=== PATIENT | male | born 1955 | race Caucasian/White ===

== ENCOUNTER 2018-06-29 11:08 | Inpatient (IN) | payer OTHER ==
[2018-06-29] MEDS ORDERED: ONDANSETRON 4 MG/2 ML VIAL ONE (12:30)
[2018-06-29] MEDS ORDERED: MORPHINE 4 MG/ML SYR ONE (12:30)
[2018-06-29] MEDS ORDERED: Levofloxacin500mg IV 500 MG/100 ML BAG IV ONE (12:31)
[2018-06-29] MEDS ORDERED: CEFTRIAXONE/SWI 1gm 1 GM/10 ML SYR ONE (12:31)
[2018-06-29] MEDS ORDERED: NA CHLORIDE 0.9% 1,000 ML ONE (12:31)
--- NOTE | 2018-06-29 12:53 | RAD REPORT ---
EXAM DESCRIPTION: CT - Stone Protocol - 06/29/2018 12:30 pm CLINICAL HISTORY: Abdominal pain, flank pain, testicular pain, history of bladder cancer COMPARISON: CT imaging November 2016 in October 2012 TECHNIQUE: Axial 5 mm thick images were obtained without oral or IV contrast. The [id number] span s the entirety of the system including uppermost abdomen and lung bases. All CT scans are performed using dose optimization technique as appropriate and may include automated exposure control or mA/KV adjustment according to patient size. FINDINGS: Bilateral nephrocalcinosis is present. Patient has punctate caliceal calculi mid and upper pole of the right kidney is well is a 7 x 3 mm calcification in a calyx lower pole left kidney. Calc ifications are more numerous than November 2016. On the left there is punctate mid and lower pole calice al calculi. No suspicious renal masses. Isodense masses and pyelonephritis are not excluded on a ston e protocol CT scan. No urinary bladder suspicious finding. No bladder calculus. Prostate gland and se salvador vesicles are normal range in unchanged. Imaged portions of the liver, spleen and pancreas show no suspicious findings on non-contrast imaging . No gallbladder or biliary tree abnormality identified. Gallstones can be occult on CT imaging. An a cute gallbladder process is not suspected. No suspicious bowel findings. No acute appendicitis findings. Trace amount of free fluid is present i n the cul-de-sac. No free air or pneumatosis. Patient has a small fat only umbilical hernia. Moderate-sized bilateral inguinal hernias are present. On the right this contains only fat. Short-segment of proximal sigmoid colon extends into the left h ernia defect. No bowel wall thickening or edema. No congested or edematous fat. Disc and bony degenerative changes are present. Two sclerotic foci air seen in the superior right jackson ac crest measuring 7 mm laterally and 9 mm medially. Comparing back to prior imaging shows interval e nlargement. In the left ilium adjacent to the SI joint there are 2 lucent lesions seen. The more supe rior lesion shows no sclerotic rim. The more inferior lesion has a dense sclerotic rim. These are not clearly different from prior imaging studies. . IMPRESSION: Moderate-sized bilateral inguinal hernias are present. Hernia on the left contains a mat rt segment of the proximal sigmoid colon. No wall thickening or edema. No new findings in the right s ajay hernia. Trace amount of free fluid in the dependent portion of the pelvis. No acute GI process identifiable. Nephrolithiasis and nonobstructing caliceal calcifications of each kidney. No hydronephrosis or obstr ucting calculus. Isodense masses and pyelonephritis are not excluded on stone protocol technique. Sclerotic foci in the superior right iliac crest have enlarged compared to prior imaging studies. In a patient with a history of bladder cancer, metastatic disease is suspected.
--- NOTE | 2018-06-29 12:58 | RAD REPORT ---
EXAM DESCRIPTION: RAD - Chest Single View - 06/29/2018 12:41 pm CLINICAL HISTORY: ABDOMINAL DISTENTION Chest pain. COMPARISON: Abdomen 1 View (KUB) dated 10/01/2016; ABDOMEN 1 VIEW KUB dated 10/01/2012; CHEST PA AND L AT 2 VIEW dated 01/23/2012; CHEST SINGLE VIEW dated 09/29/2011 FINDINGS: Portable technique limits examination quality. Prominent emphysematous changes are present throughout the lungs. The heart is normal in size. No dis placed fractures.Sternotomy wires present. IMPRESSION: Advanced COPD.
--- NOTE | 2018-06-29 13:03 | RAD REPORT ---
EXAM DESCRIPTION: US - Scrotum Testicles - 06/29/2018 12:52 pm CLINICAL HISTORY: Abdominal pain, testicular pain COMPARISON: CT stone protocol study same date FINDINGS: Testicular tissue is homogeneous. No intratesticular mass lesion. Right testicle is 4.6 x 2.1 x 3.4 cm. Left testicle is 4.8 x 2.1 x 2.9 cm. Doppler evaluation shows a symmetric intratesticul ar blood flow pattern. No varicocele or hydrocele seen. No suspicious epididymis finding. Earlier CT study demonstrated moderate-sized fat filled inguinal hernias. On the right side the herni ated fatty tissue extends through the groin to the superior margin of the right testicle. On the left the herniated fat is not as pronounced. CT showed herniation of sigmoid colon only into the origin o f the left inguinal canal. IMPRESSION: No testicular significant finding. Bilateral fat filled inguinal hernias are present. Fatty tissue is more pronounced on the right were it extends inferiorly to the level of the right testicle. The herniated bowel seen on the CT study left-side extends only into the proximal most inguinal canal .
--- NOTE | 2018-06-29 13:19 | ER ---
Nurse's Notes [facility] Name: Abdulaziz Houston Age: 63 yrs Sex: Male : 1955 Arrival Date: 06/29/2018 Time: 11:10 Bed 19 Private MD: Marjorie Mcelroy Diagnosis: Bilateral inguinal hernia, with obstruction, without gangrene;[id number];Chronic obstructive pulmonary disease, unspecified;Cystitis;Cystitis, unspecified Presentation: 06/29 11:16 Presenting complaint: Patient states: Groin and testicular pain that began yesterday, ph also c/o slight swelling to amadeo testicles, denies fever, N/V/D, also reports excessive belching. Transition of care: patient was not received from another setting of care. Onset of symptoms was June 29, 2018. Risk Assessment: Do you want to hurt yourself or someone else? Patient reports no desire to harm self or others. Care prior to arrival: None. 11:16 Method Of Arrival: Wheelchair ph 11:16 Acuity: YAHAIRA 3 ph 15:39 Initial Sepsis Screen: Does the patient meet any 2 criteria? No. Patient's initial sepsis screen is negative. Does the patient have a suspected source of infection? Yes:. Historical: - Allergies: 11:27 yellow fever vaccine live (PF); ph - Home Meds: 11:27 ipratropium-albuterol 0.5 mg-3 mg(2.5 mg base)/3 mL Inhl nebu 3 mL 4 times per day ph [Active]; albuterol sulfate 2.5 mg /3 mL (0.083 %) Nebulizer nebu twice a day [Active]; ipratropium bromide 0.02 % inhalation soln 2.5 mL twice a day [Active]; Spiriva with HandiHaler 18 mcg inhalation CpDv 1 cap once daily [Active]; Symbicort 160-4.5 mcg/actuation inhalation HFAA 1 puffs twice a day [Active]; tamsulosin 0.4 mg oral cp24 1 cap once daily [Active]; finasteride 5 mg oral tab 1 tab once daily [Active]; omeprazole 20 mg Oral cpDR 2 caps once daily [Active]; ranitidine HCl 150 mg Oral cap 1 cap 2 times per day [Active]; fluticasone 50 mcg/actuation nasal spsn 1 spray 2 times per day [Active]; - PMHx: 11:20 bladder cancer; COPD; mitral valve problems; prostate problems; ph - PSHx: 11:20 mitral valve sx; ph 11:23 bladder sx; ph - Immunization history:: Adult Immunizations up to date. - Social history:: Smoking status: Patient/guardian denies using tobacco. - Ebola Screening: : No symptoms or risks identified at this time. - Family history:: not pertinent. Screenin:45 Abuse screen: Denies threats or abuse. Denies injuries from another. Nutritional ch screening: No deficits noted. Tuberculosis screening: No symptoms or risk factors identified. Fall Risk None identified. Assessment: 13:10 General: Appears in no apparent distress. uncomfortable, Behavior is calm, cooperative, ch appropriate for age. Pain: Complains of pain in pelvis and groin and right testicle Pain currently is 9 out of 10 on a pain scale. Pain began gradually. 13:10 Neuro: No deficits noted. Level of Consciousness is awake, alert, obeys commands, ch Oriented to person, place, time, situation. Cardiovascular: Heart tones S1 S2 present Capillary refill < 3 seconds in bilateral fingers toes. Respiratory: Airway is patent Respiratory effort is even, unlabored, Breath sounds with wheezes bilaterally. mild, pt states that is his normal. denies SOB. GI: No signs and/or symptoms were reported involving the gastrointestinal system. : Swelling noted on scrotum testicles are both bright red, and very tender to palpation Reports pain scrotum, testicle. Derm: Skin is pink, warm \T\ dry. Musculoskeletal: Capillary refill < 3 seconds, in bilateral fingers. toes. Range of motion: intact in all extremities. 14:10 Reassessment: Patient appears in no apparent distress at this time. Patient and/or ch family updated on plan of care and expected duration. Pain level reassessed. Patient is alert, oriented x 3, equal unlabored respirations, skin warm/dry/pink. 15:09 Reassessment: Patient appears in no apparent distress at this time. Patient and/or ch family updated on plan of care and expected duration. Pain level reassessed. Patient is alert, oriented x 3, equal unlabored respirations, skin warm/dry/pink. Patient states feeling better. Patient states symptoms have improved. 15:39 Reassessment: Patient appears in no apparent distress at this time. I attempt to call ch report now on the pt. no s/s of distress. resps even and unlabored. 15:52 Reassessment: Patient appears in no apparent distress at this time. Patient and/or ch family updated on plan of care and expected duration. Pain level reassessed. Patient is alert, oriented x 3, equal unlabored respirations, skin warm/dry/pink. report given to Steve RIZZO on second floor. Vital Signs: 11:20 BP 115 / 54; Pulse 98; Resp 18; Temp 98.3; Pulse Ox 100% on R/A; Weight 63.5 kg; Height ph 5 ft. 10 in. (177.80 cm); Pain 6/10; 13:45 BP 110 / 62; Pulse 84; Resp 17; Temp 98.5; Pulse Ox 99% on R/A; Pain 6/10; ch 15:09 BP 103 / 58; Pulse 81; Resp 16; Temp 97.9; Pulse Ox 99% on R/A; Pain 2/10; ch 11:20 Body Mass Index 20.09 (63.50 kg, 177.80 cm) ph ED Course: 11:10 Patient arrived in ED. as 11:11 Marjorie Mcelroy MD is Private Physician. as 11:18 Triage completed. ph 11:20 Arm band placed on. ph 11:55 Annmarie Nascimento, SO is Primary Nurse. ch 11:57 Isma Peterson MD is Attending Physician. felisha 12:19 EKG done, by parking technician. reviewed by Isma Peterson MD. at1 12:[address] nj 12:29 CT Stone Protocol In Process Unspecified. EDMS 12:29 CT completed. Patient tolerated procedure well. Patient moved to radiology Patient nj moved back from CT. 12:39 X-ray completed. Patient tolerated procedure well. az 12:42 XRAY Chest (1 view) In Process Unspecified. EDMS 12:53 US Scrotum Testicles In Process Unspecified. EDMS 13:18 Margi Mobley MD is Hospitalizing Provider. felisha 13:45 Patient has correct armband on for positive identification. Placed in gown. Bed in low ch position. Call light in reach. Side rails up X 1. Adult w/ patient. desk monitor on. Pulse ox on. NIBP on. Warm blanket given. 13:45 No provider procedures requiring assistance completed. Inserted saline lock: 20 gauge in right forearm, using aseptic technique. Blood collected. 16:52 Patient admitted, IV remains in place. ch Administered Medications: 13:15 Drug: LevaQUIN 500 mg Volume: 100 ml; Route: IVPB; Infused Over: 60 mins; Site: right ch forearm; 15:06 Follow up: IV Status: Completed infusion; IV Intake: 100ml ch 13:16 Drug: morphine 4 mg Route: IVP; Site: right forearm; ch 13:50 Follow up: Response: No adverse reaction; No change in condition ch 13:16 Drug: Zofran 4 mg Route: IVP; Site: right forearm; ch 13:49 Follow up: Response: No adverse reaction; Marked relief of symptoms ch 13:16 Drug: Rocephin - (cefTRIAXone) 1 grams Route: IVPB; Infused Over: 30 mins; Site: right ch forearm; 13:49 Follow up: IV Status: Completed infusion; IV Intake: 50ml ch 13:17 Drug: NS 0.9% 1000 ml Route: IV; Rate: 1 bolus; Site: right forearm; ch 15:06 Follow up: IV Status: Completed infusion; IV Intake: 1000ml ch 13:20 Drug: Demerol 25 mg Route: IVP; Site: right forearm; ch 14:45 Follow up: Response: No adverse reaction; Marked relief of symptoms ch 14:00 Drug: Flagyl 500 mg Volume: 100 ml; Route: IVPB; Rate: 200 ml/hr; Infused Over: 30 ch mins; Site: right forearm; 15:05 Follow up: IV Status: Completed infusion; IV Intake: 100ml ch Intake: 13:49 IV: 50ml; Total: 50ml. ch 15:05 IV: 100ml; Total: 150ml. ch 15:06 IV: 100ml; Total: 250ml. ch 15:06 IV: 1000ml; Total: 1250ml. Outcome: 13:19 Decision to Hospitalize by Provider. [facility] 16:00 Admitted to Med/surg accompanied by nurse, via wheelchair, room 223, with chart. 16:00 Condition: stable 16:00 Instructed on the need for admit. 16:19 Patient left the ED. Signatures: Dispatcher [employer] Annmarie Flower RN RN Isma Peterson MD MD cha Martinez, Amelia as Gonzales, Amanda, oceanography teacher EKG Tat1 Tressa Bragg RN RN Tee, Serene Griggs Corrections: (The following items were deleted from the chart) 11:28 11:20 Allergies: No Known Allergies; [facility]
--- NOTE | 2018-06-29 13:19 | EDPHYS ---
Physician Documentation [facility] Name: Abdulaziz Houston Age: 63 yrs Sex: Male : 1955 Arrival Date: 06/29/2018 Time: 11:10 Bed 19 Private MD: Marjorie Mcelroy ED Physician Isma Peterson HPI: 06/29 12:05 This 63 yrs old Male presents to ER via Wheelchair with complaints of Groin felisha Pain. 12:05 The patient presents with abdominal pain. Onset: The symptoms/episode began/occurred 1 felisha day(s) ago. The patient presents with swelling, tenderness, that is mild, that is moderate, of the right testicle. Onset: The symptoms/episode began/occurred 2 day(s) ago. Modifying factors: The symptoms are alleviated by remaining still, the symptoms are aggravated by movement, pressure. Associated signs and symptoms: The patient has no apparent associated signs or symptoms. The symptoms do not radiate. Associated signs and symptoms: none. Severity of pain: At its worst the pain was mild in the emergency department the pain is unchanged. Historical: - Allergies: 11:27 yellow fever vaccine live (PF); ph - Home Meds: 11:27 ipratropium-albuterol 0.5 mg-3 mg(2.5 mg base)/3 mL Inhl nebu 3 mL 4 times per day ph [Active]; albuterol sulfate 2.5 mg /3 mL (0.083 %) Nebulizer nebu twice a day [Active]; ipratropium bromide 0.02 % inhalation soln 2.5 mL twice a day [Active]; Spiriva with HandiHaler 18 mcg inhalation CpDv 1 cap once daily [Active]; Symbicort 160-4.5 mcg/actuation inhalation HFAA 1 puffs twice a day [Active]; tamsulosin 0.4 mg oral cp24 1 cap once daily [Active]; finasteride 5 mg oral tab 1 tab once daily [Active]; omeprazole 20 mg Oral cpDR 2 caps once daily [Active]; ranitidine HCl 150 mg Oral cap 1 cap 2 times per day [Active]; fluticasone 50 mcg/actuation nasal spsn 1 spray 2 times per day [Active]; - PMHx: 11:20 bladder cancer; COPD; mitral valve problems; prostate problems; ph - PSHx: 11:20 mitral valve sx; ph 11:23 bladder sx; ph - Immunization history:: Adult Immunizations up to date. - Social history:: Smoking status: Patient/guardian denies using tobacco. - Ebola Screening: : No symptoms or risks identified at this time. - Family history:: not pertinent. ROS: 12:05 Constitutional: Negative for fever, chills, and weight loss, Eyes: Negative for injury, felisha pain, redness, and discharge, ENT: Negative for injury, pain, and discharge, Neck: Negative for injury, pain, and swelling, Cardiovascular: Negative for chest pain, palpitations, and edema, Respiratory: Negative for shortness of breath, cough, wheezing, and pleuritic chest pain, Abdomen/GI: Negative for abdominal pain, nausea, vomiting, diarrhea, and constipation, Back: Negative for injury and pain, MS/Extremity: Negative for injury and deformity, Skin: Negative for injury, rash, and discoloration, Neuro: Negative for headache, weakness, numbness, tingling, and seizure, Psych: Negative for depression, anxiety, suicide ideation, homicidal ideation, and hallucinations, Allergy/Immunology: Negative for hives, rash, and allergies, Endocrine: Negative for neck swelling, polydipsia, polyuria, polyphagia, and marked weight changes, Hematologic/Lymphatic: Negative for swollen nodes, abnormal bleeding, and unusual bruising. 12:05 : Positive for urinary symptoms, testicular pain of the right testicle. Exam: 12:05 Constitutional: This is a well developed, well nourished patient who is awake, alert, felisha and in no acute distress. Head/Face: Normocephalic, atraumatic. Eyes: Pupils equal round and reactive to light, extra-ocular motions intact. Lids and lashes normal. Conjunctiva and sclera are non-icteric and not injected. Cornea within normal limits. Periorbital areas with no swelling, redness, or edema. ENT: Nares patent. No nasal discharge, no septal abnormalities noted. Tympanic membranes are normal and external auditory canals are clear. Oropharynx with no redness, swelling, or masses, exudates, or evidence of obstruction, uvula midline. Mucous membranes moist. Neck: Trachea midline, no thyromegaly or masses palpated, and no cervical lymphadenopathy. Supple, full range of motion without nuchal rigidity, or vertebral point tenderness. No Meningismus. Chest/axilla: Normal chest wall appearance and motion. Nontender with no deformity. No lesions are appreciated. Cardiovascular: Regular rate and rhythm with a normal S1 and S2. No gallops, murmurs, or rubs. Normal PMI, no JVD. No pulse deficits. Respiratory: Lungs have equal breath sounds bilaterally, clear to auscultation and percussion. No rales, rhonchi or wheezes noted. No increased work of breathing, no retractions or nasal flaring. Back: No spinal tenderness. No costovertebral tenderness. Full range of motion. Skin: Warm, dry with normal turgor. Normal color with no rashes, no lesions, and no evidence of cellulitis. MS/ Extremity: Pulses equal, no cyanosis. Neurovascular intact. Full, normal range of motion. Neuro: Awake and alert, GCS 15, oriented to person, place, time, and situation. Cranial nerves II-XII grossly intact. Motor strength 5/5 in all extremities. Sensory grossly intact. Cerebellar exam normal. Normal gait. Psych: Awake, alert, with orientation to person, place and time. Behavior, mood, and affect are within normal limits. 12:05 Abdomen/GI: Inspection: abdomen appears normal, Bowel sounds: normal, Palpation: abdomen is soft and non-tender, Liver: no appreciated palpable abnormalities, Hernia: not appreciated. 12:05 : CVA tenderness, is absent, Male external genitalia: swelling, tenderness, of the right testicle is noted. Vital Signs: 11:20 BP 115 / 54; Pulse 98; Resp 18; Temp 98.3; Pulse Ox 100% on R/A; Weight 63.5 kg; Height ph 5 ft. 10 in. (177.80 cm); Pain 6/10; 13:45 BP 110 / 62; Pulse 84; Resp 17; Temp 98.5; Pulse Ox 99% on R/A; Pain 6/10; ch 15:09 BP 103 / 58; Pulse 81; Resp 16; Temp 97.9; Pulse Ox 99% on R/A; Pain 2/10; ch 11:20 Body Mass Index 20.09 (63.50 kg, 177.80 cm) ph MDM: 11:57 Patient medically screened. [facility] 12:09 Data reviewed: vital signs, nurses notes, lab test result(s), EKG, radiologic studies, [facility] CT scan, plain films, ultrasound. 06/29 12:04 Order name: Basic Metabolic Panel [facility] 06/29 12:04 Order name: CBC with Diff [facility] 06/29 12:04 Order name: LFT's [facility] 06/29 12:04 Order name: Magnesium [facility] 06/29 12:04 Order name: NT PRO-BNP [facility] 06/29 12:04 Order name: PT-INR [facility] 06/29 12:04 Order name: Troponin (emerg Dept Use Only) [facility] 06/29 12:04 Order name: Urine Culture [facility] 06/29 12:04 Order name: Lipase [facility] 06/29 12:05 Order name: Basic Metabolic Panel [facility] 06/29 12:05 Order name: Liver (Hepatic) Function [facility] 06/29 12:05 Order name: NT PRO-BNP [facility] 06/29 13:20 Order name: Urine Dipstick--Ancillary (enter results) 06/29 14:45 Order name: CBC Smear Scan [facility] 06/29 12:04 Order name: XRAY Chest (1 view); Complete Time: 13:03 [facility] 06/29 12:04 Order name: EKG; Complete Time: 12:05 [facility] 06/29 12:04 Order name: Cardiac monitoring; Complete Time: 15:06 [facility] 06/29 12:04 Order name: EKG - Nurse/Tech; Complete Time: 13:15 [facility] 06/29 12:04 Order name: CT Stone Protocol; Complete Time: 13:03 [facility] 06/29 12:04 Order name: US Scrotum Testicles; Complete Time: 13:16 [facility] 06/29 13:27 Order name: CONS Physician Consult [facility] 06/29 13:27 Order name: CONS Physician Consult [facility] 06/29 15:22 Order name: Diet Regular; Complete Time: 15:22 06/29 12:04 Order name: IV Saline Lock; Complete Time: 13:15 [facility] 06/29 12:04 Order name: Labs collected and sent; Complete Time: 13:15 [facility] 06/29 12:04 Order name: O2 Per Protocol; Complete Time: 13:15 [facility] 06/29 12:04 Order name: O2 Sat Monitoring; Complete Time: 13:15 [facility] 06/29 12:04 Order name: Urine Dipstick-Ancillary (obtain specimen); Complete Time: 13:17 [facility] Administered Medications: 13:15 Drug: LevaQUIN 500 mg Volume: 100 ml; Route: IVPB; Infused Over: 60 mins; Site: right forearm; 15:06 Follow up: IV Status: Completed infusion; IV Intake: 100ml ch 13:16 Drug: morphine 4 mg Route: IVP; Site: right forearm; ch 13:50 Follow up: Response: No adverse reaction; No change in condition ch 13:16 Drug: Zofran 4 mg Route: IVP; Site: right forearm; ch 13:49 Follow up: Response: No adverse reaction; Marked relief of symptoms ch 13:16 Drug: Rocephin - (cefTRIAXone) 1 grams Route: IVPB; Infused Over: 30 mins; Site: right ch forearm; 13:49 Follow up: IV Status: Completed infusion; IV Intake: 50ml ch 13:17 Drug: NS 0.9% 1000 ml Route: IV; Rate: 1 bolus; Site: right forearm; 15:06 Follow up: IV Status: Completed infusion; IV Intake: 1000ml ch 13:20 Drug: Demerol 25 mg Route: IVP; Site: right forearm; ch 14:45 Follow up: Response: No adverse reaction; Marked relief of symptoms ch 14:00 Drug: Flagyl 500 mg Volume: 100 ml; Route: IVPB; Rate: 200 ml/hr; Infused Over: 30 ch mins; Site: right forearm; 15:05 Follow up: IV Status: Completed infusion; IV Intake: 100ml Disposition: 06/29/18 13:19 Hospitalization ordered by Margi Mobley for Inpatient Admission. Preliminary diagnosis are Bilateral inguinal hernia, with obstruction, without gangrene, Epididymo-orchitis - right, Chronic obstructive pulmonary disease, unspecified, Cystitis, Cystitis, unspecified. - Bed requested for Telemetry/MedSurg (Inpatient). - Status is Inpatient Admission. ch - Condition is Fair. - Problem is new. - Symptoms have improved. UTI on Admission? Yes Signatures: Dispatcher [employer] EDAnnmarie Forman RN RN ch Woody, Diana, RN RN dw Anderson, Corey, MD MD cha Hall, Patricia, RN RN ph Corrections: (The following items were deleted from the chart) 11:28 11:20 Allergies: No Known Allergies; ph ph 13:20 13:19 Hospitalization Ordered by Margi Mobley MD for Observation. Preliminary felisha diagnosis is Bilateral inguinal hernia, with obstruction, without gangrene; Epididymo-orchitis - right. Bed requested for Telemetry/MedSurg (Inpatient). Status is Observation. Condition is Fair. Problem is new. Symptoms have improved. UTI on Admission? No. [facility] 15:25 13:20 06/29/2018 13:19 Hospitalization Ordered by Margi Mobley MD for Inpatient dw Admission. Preliminary diagnosis is Bilateral inguinal hernia, with obstruction, without gangrene; Epididymo-orchitis - right; Chronic obstructive pulmonary disease, unspecified; Cystitis; Cystitis, unspecified. Bed requested for Telemetry/MedSurg (Inpatient). Status is Inpatient Admission. Condition is Fair. Problem is new. Symptoms have improved. UTI on Admission? Yes. felisha 16:19 15:25 06/29/2018 13:19 Hospitalization Ordered by Margi Mobley MD for Inpatient ch Admission. Preliminary diagnosis is Bilateral inguinal hernia, with obstruction, without gangrene; Epididymo-orchitis - right; Chronic obstructive pulmonary disease, unspecified; Cystitis; Cystitis, unspecified. Bed requested for Telemetry/MedSurg (Inpatient). Status is Inpatient Admission. Condition is Fair. Problem is new. Symptoms have improved. UTI on Admission? Yes. dw
[2018-06-29] MEDS ORDERED: MEPERIDINE HCL 25 MG/0.5 ML ONE (13:30)
[2018-06-29 13:34] LABS: Urine Blood 2+ (NEG); Urine Glucose NEGATIVE (NEG); Urine Protein 1+ (NEG); Urine Specific Gravity 1.025 (1.005-1.030)
[2018-06-29 13:34] LABS: Protime INR 1.12
[2018-06-29 13:40] LABS: ALT/SGPT 45 U/L (12-78); AST/SGOT 29 U/L (15-37); Absolute Lymphocytes (CBC) 1.2 K/uL (0.7-4.9); Absolute Monocytes 1.9 K/uL (0.1-1.3); Absolute Neutrophil 16.8 K/uL (1.8-8.0); Albumin 3.9 g/dL (3.4-5.0); Alkaline Phosphatase 106 U/L (45-117); BUN Blood Urea Nitrogen 18 mg/dL (7-18); Basophils % 0.4 % (0-1.3); Bicarbonate 29 mmol/L (21-32); Bilirubin Direct 0.3 mg/dL (0-0.2); Bilirubin Total 1.5 mg/dL (0.2-1.0); Eosinophils % 0.1 % (0-4.4); Glucose Level 106 mg/dL (74-106); Hematocrit 46.3 % (39.6-49.0); Lipase 89 U/L (73-393); Lymphocytes % 6.1 % (15.3-44.8); MCH 29.9 pg (27.0-35.0); MCV 89.3 fL (80-100); MPV 10.1 fL (7.6-11.3); Magnesium 2.2 mg/dL (1.8-2.4); Monocytes % 9.6 % (3.3-12.3); NT PRO-BNP 344 pg/mL (<125); Potassium 3.9 mmol/L (3.5-5.1); Protein, Total 8.3 g/dL (6.4-8.2); RBC Red Blood Cell Count 5.18 M/uL (4.33-5.43); Sodium Level 137 mmol/L (136-145); Troponin (Emerg Dept Use Only) < 0.02 ng/mL (0.0-0.045)
[2018-06-29] MEDS ORDERED: METRONIDAZOLE 500mg IVPB 500 MG/100 ML BAG IV ONE (14:39)
[2018-06-29 14:44] LABS: Blood Morphology Comment NOT SEEN (NOT SEEN); Platelet Estimate ADEQ; Urine White Blood Cell Casts OK
[2018-06-29] MEDS ORDERED: ONDANSETRON 4 MG/2 ML VIAL IV PRN (15:37)
--- NOTE | 2018-06-29 15:47 | EKG ---
Test Date: 2018-06-29 Test Time: 12:20:46 Bottomer Operator: SANDEEP MEASUREMENT RESULTS: Intervals: Rate: 90 MO: 156 QRSD: 102 QT: 356 QTc: 435 [place]: P: 73 MO: 156 QRS: 62 T: 70 INTERPRETIVE STATEMENTS: Normal sinus rhythm Normal ECG Compared to ECG 08/18/2012 13:30:46 Left-axis deviation no longer present Electronically Signed On 06-29-18 15:46:14 CDT by Cristian Alejandra
--- NOTE | 2018-06-29 16:51 | P.HP ---
Certification for Inpatient Patient admitted to: Observation With expected LOS: <2 Midnights Patient will require the following post-hospital care: None Practitioner: I am a practitioner with admitting privileges, knowledge of patient current condition, hospital course, and medical plan of care. Services: Services provided to patient in accordance with Admission requirements found in Title 42 Section 412.3 of the Code of Federal Regulations Patient History Date of Service: 06/29/18 Primary Care Provider: None Reason for admission: Testicular Swelling and Pain History of Present Illness: This is a 63-year-old male with significant past medical history of COPD, bladder cancer, mitral valve rupture who presented to the ED complaining of having some abdominal pain and gas since Friday. Patient stated that his gas and abdominal pain has been getting progressively worse and thus he decided to come to the ER. Along with the abdominal pain patient also had some nausea and vomiting. This morning however he started noticing that he had been having some testicular swelling and irritation in the area which got a more concerned and thus he decided to come to the ER. Denies having any fever chills chest pain shortness of breath or any other associated symptoms with that. Patient currently states that he is not sexually active. Has not noted any increase in frequency during urination either. No burning noted as well. No other complaints to offer. Allergies yellow fever vaccine live Allergy (Verified 06/29/18 15:20) Itching/Hives/Rash Review of Systems 10-point ROS is otherwise unremarkable Physical Examination - Vital Signs Temperature: 97.9 F Blood Pressure: 103/58 Pulse: 81 Respirations: 16 - Physical Exam General: Alert, In no apparent distress HEENT: Atraumatic, PERRLA, Mucous membr. moist/pink, EOMI, Sclerae nonicteric Neck: Supple, 2+ carotid pulse no bruit, No LAD, Without JVD or thyroid abnormality Respiratory: Clear to auscultation bilaterally, Normal air movement Cardiovascular: Regular rate/rhythm, Normal S1 S2 Gastrointestinal: Normal bowel sounds, No tenderness Musculoskeletal: No tenderness Integumentary: No rashes Neurological: Normal speech, Normal strength at 5/5 x4 extr, Normal tone Lymphatics: No axilla or inguinal lymphadenopathy Urinary: Other (Testicular Swelling and erythema noted. Tenderness to Touch) External genitalia: Edema, Tenderness - Studies Laboratory Data (last 24 hrs) 06/29/18 13:00: PT 13.2 H, INR 1.12 06/29/18 13:00: WBC 20.0 H, Hgb 15.5, Hct 46.3, Plt Count 236 06/29/18 13:00: Sodium 137, Potassium 3.9, BUN 18, Creatinine 1.20, Glucose 106 , Magnesium 2.2, Total Bilirubin 1.5 H, AST 29, ALT 45, Alkaline Phosphatase 106 , Lipase 89 Assessment and Plan - Problems (Diagnosis) (1) Testicular swelling Current Visit: Yes Status: Acute Plan: Acute Testicular Swelling and Tenderness -Scrotal US pending -ABD CT negative for testicular or scrotal abnormality -ICE and elevate the affected area -IV rocephin and Doxycycline -Urine Cx pending (2) Inguinal hernia Current Visit: Yes Status: Acute Plan: BL Inguinal Hernia with Proximal filled with small bowel -Surgery consulted. Awaiting recommendations at this time Qualifiers: Obstruction and gangrene presence: without obstruction or gangrene Laterality: bilateral Recurrence: non-recurrent Qualified Code(s): K40.20 - Bilateral inguinal hernia, without obstruction or gangrene, not specified as recurrent (3) Bladder cancer Current Visit: Yes Status: Chronic Plan: S/P BCG treatment pending -Scelrotic Changed in the [facility]. Concern for mets ca vs bladder ca -Urology consulted. Qualifiers: Bladder location: anterior wall Qualified Code(s): C67.3 - Malignant neoplasm of anterior wall of bladder (4) COPD (chronic obstructive pulmonary disease) Current Visit: Yes Status: Chronic Qualifiers: COPD type: COPD with acute lower respiratory infection Qualified Code(s): J44.0 - Chronic obstructive pulmonary disease with acute lower respiratory infection Discharge Plan: Home Plan to discharge in: 48 Hours - Advance Directives Does patient have a Living Will: No Does patient have a Durable POA for Healthcare: No - Code Status/Comfort Care Code Status Assessed: Yes Critical Care: No
[2018-06-29] MEDS: CEFTRIAXONE/SWI 1gm 1 GM/10 ML SYR IVP SCH (17:00)
[2018-06-29] MEDS ORDERED: MORPHINE 2 MG/ML SYR IV PRN (17:01)
[2018-06-29] MEDS: TRAMADOL HCL 50 MG TAB PO PRN (17:29)
[2018-06-29] MEDS: NA CHLORIDE 0.9% 1,000 ML IV SCH (17:29)
[2018-06-29 18:23] LABS: Urine Appearance CLEAR; Urine Bilirubin NEGATIVE (NEG); Urine Blood 2+ (NEG); Urine Color YELLOW; Urine Glucose NEGATIVE (NEG); Urine Protein NEGATIVE (NEG); Urine Urobilinogen 0.2 mg/dL (0.2-1.0)
[2018-06-29 18:35] LABS: Urine Microscopic Reflex ORDER UMIC
[2018-06-29 18:51] LABS: Urine Bacteria 20-50 /HPF (NONE SEEN); Urine Culture Reflex Order REFLEXED
[2018-06-29 19:26] VITALS: BMI 19.7
[2018-06-29] MEDS: DOXYCYCLINE 100 MG in NA CHLORIDE 0.9% 100 ML IVPB SCH (20:41)
[2018-06-30] MEDS: NA CHLORIDE 0.9% 1,000 ML IV SCH ×4 (00:09→20:25)
[2018-06-30] MEDS: TRAMADOL HCL 50 MG TAB PO PRN ×2 (00:17→16:45)
[2018-06-30 06:05] LABS: Absolute Lymphocytes (CBC) 1.2 K/uL (0.7-4.9); Absolute Monocytes 1.7 K/uL (0.1-1.3); Basophils % 0.6 % (0-1.3); Eosinophils % 0.5 % (0-4.4); Hematocrit 39.2 % (39.6-49.0); MCH 30.3 pg (27.0-35.0); MCV 89.3 fL (80-100); MPV 9.5 fL (7.6-11.3); Monocytes % 10.1 % (3.3-12.3); RBC Red Blood Cell Count 4.39 M/uL (4.33-5.43)
[2018-06-30 06:24] LABS: Albumin 3.1 g/dL (3.4-5.0); Bilirubin Total 1.4 mg/dL (0.2-1.0); Phosphorus 1.7 mg/dL (2.5-4.9); Potassium 3.9 mmol/L (3.5-5.1); Protein, Total 6.8 g/dL (6.4-8.2)
[2018-06-30] MEDS: CEFTRIAXONE/SWI 1gm 1 GM/10 ML SYR IVP SCH (08:24)
[2018-06-30] MEDS ORDERED: POTASSIUM PHOS IN 0.9 % NACL 15 MMOL/250 ML BAG IV ONE (09:00)
[2018-06-30] MEDS ORDERED: CEFTRIAXONE 1 GM/NS 50 ML 1 GM/50 ML BAG IV SCH (09:00)
[2018-06-30] MEDS: DOXYCYCLINE 100 MG in NA CHLORIDE 0.9% 100 ML IVPB SCH ×2 (09:17→20:17)
[2018-06-30] MEDS ORDERED: HOME MED 1 EA UNK (Fluticasone Propionate [Flovent Diskus] 1 SPRAY) IH PRN (09:47)
[2018-06-30] MEDS ORDERED: HOME MED 1 EA UNK (Ipratropium/Albuterol Sulfate [Combivent Respimat 20-100 Mcg] 1 PUFF) IH PRN (09:49)
[2018-06-30] MEDS: ACETAMINOPHEN 500 MG TAB PO PRN ×2 (11:34→20:18)
--- NOTE | 2018-06-30 18:24 | CON ---
Date of Consultation: 06/30/2018 Reason: Bilateral inguinal hernia. History Of Present Illness: The patient is a 63-year-old gentleman with multiple medical problems, w ho had severe lower abdominal, groin, testicular pain, and he came to the ER. Initially, he had some nausea and vomiting, but he had testicular swelling and increasing pain in the testicle. He denies any fever or chills. No nausea or vomiting currently. No diarrhea or constipation. No blood in his stool. No dysuria or hematuria. He has not had any frequency either. No sore throat, runny nose, cough, headaches, or dizziness. No chest pain. No fever or chills. Review of Systems: Otherwise unremarkable. Past Medical History: Significant for bladder cancer, COPD, mitral valve problems, prostate problems . Past Surgical History: Mitral valve surgeries, bladder surgeries. Allergies: YELLOW FEVER VACCINE. Social History: He does not smoke. Does not drink alcohol. Family History: Noncontributory. Physical Examination: VITAL SIGNS: Stable, afebrile. GENERAL: Awake, alert, and oriented x3. HEAD AND NECK: Cranial nerves 2 through 12 grossly within normal limits. No neck masses. No JVD. Throat clear. Neck is supple. CHEST: Clear. HEART: S1, S2. ABDOMEN: Soft, nondistended, nontender. Positive bowel sounds. EXTREMITIES: Adequately perfused. Nontender. NEURO: Nonfocal. : The patient has reducible bilateral inguinal hernia, and the testes are very tender and appear e dematous, and there is redness on the scrotum as well. Laboratory Data: He had an ultrasound of the testicles and CT stone protocol. There was no signific ant testicular finding. There were bilateral fat filled inguinal hernias present, some of the fatty tissue was extending into the level of the right testicle. There was questionable herniated bowel on the CT study, but it only extends to the proximal most part of the inguinal canal. CT of the abdome n and pelvis shows moderate-sized bilateral inguinal hernia present, hernia on the left contains a sh ort segment of proximal sigmoid colon. No wall thickening or edema. No new finding on the right dania e hernia. Nephrolithiasis, nonobstructing calcification in each kidney. No hydronephrosis. Sclerot ic foci in the superior right iliac crests have enlarged compared to prior imaging in a patient with a history of bladder cancer metastatic disease is suspected. Laboratory data is significant for admi ssion white count of 20,000, currently 17.1 with a left shift. INR is 1.12. Electrolytes reviewed. UA is significant for 2+ blood, positive nitrites, trace 2+ esterase. Red cells and white cells are seen between 10 and 20. Cultures pending. Assessment: A 63-year-old gentleman with history of bladder cancer and bilateral inguinal hernias, o rchitis, and epididymitis certainly can present like this. Therefore, my recommendation is we will await Dr. Peñaloza's evaluation. The patient needs to be on emp iric antibiotics. The patient does not need acute hernia surgery repair. Once his bladder cancer is dorinda and orchitis/epididymitis is treated, he can follow up with me in the office once cleared by Hollis ulloa. Plan of care discussed with Dr. Hernandez. GENE/ASAD Voice ID: [id number] Report ID: [id number]
--- NOTE | 2018-06-30 18:54 | PN ---
History: The patient seen and examined. Chart reviewed and case discussed with RN. The patient still having significant amount of pain. I spoke with Dr. Ward, who does not recommend any acute intervention at this time. He will repair inguinal hernias as outpatient once acute infection has improved. Awaiting evaluation by Dr. Peñaloza. Review of Systems: Negative except as above. Medications: List reviewed. Physical Examination: Vital Signs: Temperature 99.4, heart rate 88, blood pressure 115/56, respirations 20, O2 96% on 2 L via nasal cannula. General: Awake, alert, oriented x3. Moderate distress due to pain. Elderly male, appears older than stated, frail. CV: S1 and S2. Regular rate and rhythm. Peripheral pulses present. Respiratory: Moving air well bilaterally. No wheezing or stridor. Gastrointestinal: Abdomen is soft, nontender, nondistended. Positive bowel sounds. : The patient has testicular swelling and erythema mainly on the right side. Moderate tenderness to palpation. Inguinal hernia present, reducible. Extremities: No clubbing, cyanosis, or edema. Neurologic: Nonfocal. Laboratory Data: Sodium 136, potassium 3.9, chloride 104, CO2 24, BUN 18, creatinine 1, glucose 96, calcium 8.2, phosphorus 1.7, magnesium 2. WBC 17.1, H and H 13.3 and 39.2, platelets 174, neutrophils 81%. The urine culture is pending. A scrotal ultrasound shows bilateral fat filled inguinal hernias present, more pronounced on the right, little suspicious of epididymis finding. No varicocele or hydrocele. CT scan of the abdomen personally reviewed shows bilateral moderate-sized inguinal hernias. No wall thickening or edema. Trace amount of free fluid in the dependent portion of the pelvis, nephrolithiasis, and nonobstructing caliceal calcifications in each kidney. No hydronephrosis. Sclerotic foci in the superior right iliac crest in large part of previous imaging, suspicious for metastatic disease. Assessment And Plan: A 63-year-old male with: 1. Orchitis. The patient has significant testicular swelling, pain, tenderness. Ultrasound of the testicle does not show any hydrocele or any incarcerated hernia. Pending Dr. Peñaloza's evaluation, we will continue with pain medications, ice, elevating the area. Continue IV antibiotics. Follow up on urine culture. Dr. Peñaloza is on the case. 2. Bilateral inguinal hernia, moderate. Appreciate Dr. Ward's input. The inguinal hernias are without obstruction or ganglion, nonrecurrent, likely surgical intervention as outpatient once acute issues have resolved. 3. History of bladder cancer. CT does show some sclerosis in the iliac crest concerning for metastatic disease versus possible bladder cancer. We will await Dr. Peñaloza's input. 4. Chronic obstructive pulmonary disease with acute lower respiratory infection. We will continue with nebulizer treatment and supplemental O2 as needed. Continue IV antibiotics. 5. Gastrointestinal and deep vein thrombosis prophylaxis addressed. Continue home nebulizer treatments, pain medications, IV fluids. Follow up on cultures. The patient still has significant amount of pain, elevated white count with left shift. The patient will need IV antibiotics. Likely discharge in the next 24-48 hours. May need surgical intervention depending on urology recommendation. SARAI Voice ID: [id number] Report ID: [id number] MTDD
--- NOTE | 2018-06-30 19:09 | CON ---
Brief History: This gentleman is a 63-year-old who came in with a history of COPD, superficial bladder cancer, mitral valve rupture, presented to the ED, with some abdominal pain and gas since Friday. CT scan revealed bilateral inguinal hernias. The hernia in the left contains a short segment of sigmoid colon, the one on the right extends all the way down to the testicle. He is having pain in this testicle area, it was kind of matted and swollen. He, on ultrasound, did not show any increased blood flow to the area, which rule out orchitis. However, on physical exam, it seems like right epididymo- orchitis. Interestingly, the CT scan picked up 2 sclerotic foci seen in the superior right iliac crest measuring 7 mm laterally and 9 mm medially of 2 areas. Comparing back to previous scans, showed enlargement in the left ilium lucent lesions seen also. The more inferior lesion has a dense sclerotic rim. These last two ones were not different from prior images. I think we should get a bone scan here in this case. Allergies: TO YELLOW FEVER VACCINE. Review of Systems: A 10-point review of systems, otherwise, unremarkable. Home Medications: Aspirin, albuterol, ipratropium bromide, fluticasone, budesonide, omeprazole, Proscar, Tiotropium, Flomax, ranitidine. Past Medical History: History of bladder cancer, had a TIG1 in 2011, T1G3, 2010 , had BCG x6. He was on the SWOG maintenance schedule, but stopped in last 12 months due to being intolerable to the BCG. Also has some issues with kidney stones by CT scan. Physical Examination: Vital Signs: The patient was afebrile. Stable. General: Alert and oriented. is present in the room. HEENT: Atraumatic, normocephalic. Neck: Supple. Respiratory: Clear. Cardiovascular: S1, S2. Gastrointestinal: Normal bowel sounds. Musculoskeletal: No tenderness. Skin: No rashes. Neurologic: Alert and oriented. Lymphatics: No axillary. Urinary: Right testicular swelling and matted red erythema, tender to touch, right inguinal hernia also note noted . Diagnostic Data: Of interest, his white count came down from 20,000 to 17,000. Coags normal. Chemistries: Sodium 136, potassium 3.9, chloride 104, carbon dioxide 24, BUN 18 , creatinine 1.0, GFR 75, glucose 96, calcium 8.2. Urine shows positive nitrites and esterase. Microbiology is pending. Culture is pending. Assessment: Right orchitis, bilateral inguinal hernia, history of bladder cancer, abnormal pelvic bone area. Plan: To wait on urine culture results. Based on treatment from that, continue treating with an IV Rocephin for the right orchitis. The hernia surgery can be delayed until infection is resolved. We will obtain a bone scan to evaluate the sclerotic lesions in the pelvis more clearly. He has a urologist in [place] that he follows up with. He has been doing his cystoscopies once a year. I have encouraged him to continue doing that. JUAN LUIS/ASAD Voice ID: [id number] Report ID: [id number] MTDD
[2018-06-30] MEDS ORDERED: IPRATROPIUM BROM 0.5MG/2.5ML NEB SCH (20:00)
[2018-06-30] MEDS ORDERED: ALBUTEROL 2.5 MG/3 ML NEB SOL NEB SCH (20:00)
[2018-06-30] MEDS ORDERED: HOME MED 1 EA UNK (Ranitidine [Zantac*] 150 MG) PO SCH (21:00)
[2018-06-30] MEDS ORDERED: HOME MED 1 EA UNK (Budesonide/Formoterol Fumarate [Symbicort 160-4.5 Mcg Inhaler] 1 PUFF) IH SCH (21:00)
[2018-07-01] MEDS: NA CHLORIDE 0.9% 1,000 ML IV SCH ×2 (02:00→16:42)
[2018-07-01 05:38] LABS: Absolute Lymphocytes (CBC) 1.1 K/uL (0.7-4.9); Absolute Monocytes 1.9 K/uL (0.1-1.3); Basophils % 0.5 % (0-1.3); Eosinophils % 0.6 % (0-4.4); Hematocrit 37.3 % (39.6-49.0); Lymphocytes % 6.3 % (15.3-44.8); MCV 89.4 fL (80-100); Monocytes % 10.3 % (3.3-12.3); RBC Red Blood Cell Count 4.17 M/uL (4.33-5.43)
[2018-07-01 05:56] LABS: Magnesium 2.1 mg/dL (1.8-2.4); Phosphorus 2.1 mg/dL (2.5-4.9); Potassium 4.6 mmol/L (3.5-5.1); Protein, Total 6.9 g/dL (6.4-8.2)
[2018-07-01] MEDS: POTASS/SODIUM PHOSPHATE 1 PKT POWD.PACK PO SCH ×3 (06:41→09:17)
[2018-07-01] MEDS ORDERED: TAMSULOSIN PO SCH (09:00)
[2018-07-01] MEDS ORDERED: OMEPRAZOLE PO SCH (09:00)
[2018-07-01] MEDS ORDERED: HOME MED 1 EA UNK (Tiotropium [Spiriva Handihaler*] 1 CAP) IH SCH (09:00)
[2018-07-01] MEDS ORDERED: FINASTERIDE 5 MG PO SCH (09:00)
[2018-07-01] MEDS: DOXYCYCLINE 100 MG in NA CHLORIDE 0.9% 100 ML IVPB SCH ×2 (09:17→20:04)
[2018-07-01] MEDS: CEFTRIAXONE/SWI 1gm 1 GM/10 ML SYR IVP SCH (09:17)
--- NOTE | 2018-07-01 09:20 | RAD REPORT ---
EXAM DESCRIPTION: NM - Bone Imaging Whole Body - 07/01/2018 8:44 am CLINICAL HISTORY: Bladder cancer, abnormal CT study COMPARISON: CT imaging June 29 2018, November 2016 and October 2012 TECHNIQUE: The patient was administered 26.9 mCi Tc 99m MDP. Anterior and posterior whole-body views were obtained at 3-4 hours. FINDINGS: There is physiologic distribution of the radiopharmaceutical with the expected amount of k idney and urinary bladder activity. Low-level uptake is seen at each sternoclavicular joint and anterior first rib. These are typical deg enerative activities. Similar low-level AC joint activity is present typical for degenerative change. Patient has a low-level uptake throughout the sternum. This is believed to be physiologic and relate d to sternotomy procedure. No suspicious rib, upper extremity or spine activity. No suspicious lower extremity activity. In the right superior iliac crest, site of 2 enlarging sclerotic foci on CT imaging, there is no abno rmal bone scan activity seen. A punctate focus of increased activity is seen on posterior projections in the region of the inferior margin SI joint. On CT imaging there is no significant degenerative ch ayesha at the SI joint. In the posterior ilium there is a focal lesion that is peripherally sclerotic. This is the approximate location of the bone scan finding. Review of CT imaging back to 2012 shows no warp changer time. IMPRESSION: No abnormal bone scan activity in the area of enlarging sclerotic foci superior right il iac crest. Punctate focus of increased activity as a solitary abnormality near the inferior margin left SI joint . CT imaging shows a peripherally sclerotic lesion in this general location that has shown no change back to 2013. The absence of iliac crest activity would favor a benign etiology. Findings can be monitored and adan elated with any clinical or laboratory abnormalities.
[2018-07-01] MEDS ORDERED: FENTANYL CITR 100 MCG/2 ML IV PRN (13:01)
[2018-07-01] MEDS: Meropenem 1,000 MG in NA CHLORIDE 0.9% 100 ML IV SCH (16:43)
[2018-07-01] MEDS ORDERED: Meropenem 1000 MG/VIAL IV SCH (17:00)
--- NOTE | 2018-07-01 17:52 | PN ---
Date of Progress Note: 07/01/2018 History: The patient is seen and examined. Chart reviewed and case discussed with RN and Dr. Ward. The patient states his pain is a little bit better, however, still having significant pain. Review of Systems: Negative except as above. Medications: List reviewed. Physical Examination: Vital Signs: Temperature 97.7, heart rate 89, blood pressure 98/48, respirations 20, O2 2 L via nasa l cannula. General: Awake, alert, oriented x3. Some mild distress due to pain. Elderly male, ill-appearing. CV: S1, S2. Sinus tachycardia. Peripheral pulses present. No murmurs. Respiratory: Moving air well bilaterally. No wheezing or stridor. No use of accessory muscles. Gastrointestinal: Abdomen is soft, nontender, nondistended. Positive bowel sounds. : The patient does have some mild erythema of the right testis along with significant tenderness t o palpation. Extremities: No clubbing, cyanosis, or edema. Neurologic: Nonfocal. Laboratory Data: Sodium 137, potassium 4.6, chloride 105, CO2 26, BUN 13, creatinine 0.9, glucose 11 3, calcium 8.4, phosphorus 2.1, magnesium 2.1, AST 43, ALT 44, albumin 3. WBC 18.2, H and H 12.9, 37 .3, platelets 166, neutrophils 82%. Urine culture no growth to date. Assessment And Plan: A 63-year-old male with: 1.Right-sided orchitis. The patient continues to have significant swelling, tenderness, erythema. White count is trending up. We will continue with IV antibiotics. Dr. Peñaloza on board. Appreciate h is input. We will continue some symptomatic treatment as well with pain medications. The patient st ates of morphine does not work for him. We will switch to fentanyl. Continue ice and elevation. Ur ine culture so far is no growth to date. We will continue to monitor. May need to be admitted to ad just IV antibiotics. 2.Bilateral inguinal hernia, moderate. Without obstruction or gangrene, non recurrent. Surgery to be delayed until after acute infection has resolved, likely to be done as outpatient by Dr. Ward. 3.History of bladder cancer. The sclerosis seen on the iliac crest on CT scan was further evaluated by bone scan, which was un-concerning for metastatic disease. 4.Chronic obstructive pulmonary disease with acute respiratory infection. We will continue nebulize r treatments and supplemental O2 as needed. 5.Hypotension. We will continue with IV fluids. Monitor blood pressure. 6.Gastrointestinal and deep venous thrombosis prophylaxis with PPI and Lovenox. Plan: Continue current treatment. The patient still clinically very serious, has hypotension, tachy cardia. White count elevated, trending upwards. We will continue with treatment. Likely discharge in the 48-72 hours depending on clinical response. /ASAD Voice ID: [id number] Report ID: [id number]
--- NOTE | 2018-07-01 19:07 | PN ---
Subjective: The patient still has very swollen scrotum. Objective: He had bone scan performed to follow up the iliac densities seen in CT scan, was reported punctate focus of increased activity, solitary abnormality near the inferior margin of the left SI j oint. CT images showed peripheral sclerotic lesion in his general location with no change back to 20 13 and absence of iliac crest activity, favor benign etiology. His urine culture is growing some Pse udomonas bugs, was screened, we are going to switch him from the Rocephin to meropenem and Cipro. Wh ite count is still elevated at 18,000. Assessment: Right orchitis. Plan: Switch patient from Rocephin to meropenem. Hopefully send him home on Cipro tomorrow once the culture and sensitivities are back. Check another white count tomorrow, make sure it is going in th e correct direction. JUAN LUIS/ASAD Voice ID: [id number] Report ID: [id number]
[2018-07-01] MEDS: ACETAMINOPHEN 500 MG TAB PO PRN (20:05)
[2018-07-02] MEDS: Meropenem 1,000 MG in NA CHLORIDE 0.9% 100 ML IV SCH ×3 (00:13→18:24)
[2018-07-02] MEDS: NA CHLORIDE 0.9% 1,000 ML IV SCH ×3 (04:21→18:24)
[2018-07-02 05:24] LABS: Absolute Lymphocytes (CBC) 0.5 K/uL (0.7-4.9); Absolute Monocytes 1.1 K/uL (0.1-1.3); Absolute Neutrophil 6.6 K/uL (1.8-8.0); Basophils % 0.1 % (0-1.3); Eosinophils % 2.1 % (0-4.4); Hematocrit 34.9 % (39.6-49.0); Lymphocytes % 6.5 % (15.3-44.8); MCH 30.9 pg (27.0-35.0); MCV 88.7 fL (80-100); Monocytes % 12.7 % (3.3-12.3); RBC Red Blood Cell Count 3.94 M/uL (4.33-5.43)
[2018-07-02 05:57] LABS: ALT/SGPT 106 U/L (12-78); AST/SGOT 114 U/L (15-37); Albumin 2.6 g/dL (3.4-5.0); Alkaline Phosphatase 184 U/L (45-117); BUN Blood Urea Nitrogen 9 mg/dL (7-18); Bicarbonate 27 mmol/L (21-32); Bilirubin Total 0.5 mg/dL (0.2-1.0); Glucose Level 109 mg/dL (74-106); Protein, Total 6.2 g/dL (6.4-8.2); Sodium Level 139 mmol/L (136-145)
[2018-07-02] MEDS: POTASS/SODIUM PHOSPHATE 1 PKT POWD.PACK PO SCH ×3 (06:44→09:32)
[2018-07-02] MEDS ORDERED: POTASS/SODIUM PHOSPHATE 1 PKT POWD.PACK PO SCH (07:00)
[2018-07-02] MEDS: DOXYCYCLINE 100 MG in NA CHLORIDE 0.9% 100 ML IVPB SCH (09:33)
--- NOTE | 2018-07-02 18:26 | PN ---
Date of Progress Note: 07/02/2018 History: The patient is seen and examined. Chart reviewed and case discussed with RN and Dr. Peñaloza. The patient states he feels better. The pain is not completely resolved. However, it is improving. Treatment plan explained. All questions answered. Review of Systems: Negative except as above. Medications: List reviewed. Physical Examination: Vital Signs: Temperature 98.3, Tmax: 102.7 heart rate 89, blood pressure 114/56 , respirations 17, O2 saturations 96% on room air. General: Awake, alert, oriented x3, in no acute distress. Ill-appearing elderly male. CV: S1, S2. No murmurs. Peripheral pulses present. Respiratory: Moving air well bilaterally. No wheezing. Gastrointestinal: Abdomen is soft, nontender, nondistended. Positive bowel sounds. : Testicular erythema has essentially resolved. Some mild tenderness to palpation. Some warmth to touch. Extremities: No clubbing, cyanosis, edema. Neurologic: Nonfocal. Laboratory Data: Sodium 139, potassium 4, chloride 107, CO2 27, BUN 9, creatinine 0.8, glucose 109, calcium 8, phosphorus 2. AST 114, ALT 106, alkaline phosphatase 184, albumin 2.6. WBC 8.4, H and H 12.2 and 34.9, platelets 158, neutrophils 78%. Urine culture growing Pseudomonas with sensitivity to meropenem. Assessment And Plan: A 63-year-old male with: 1. Right-sided orchitis. We will continue IV antibiotics with meropenem. Urine culture is growing Pseudomonas with multiple drug-resistant. The patient does have some pain, however, his swelling and erythema are improving significantly. WBC count is now normalized however still spiking high fevers. Dr. Peñaloza, Urology, on board. Dr. Peñaloza agrees with 14 days of IV antibiotics with meropenem. We will continue pain control. Continue symptomatic treatment with ice and elevation. 2. Bilateral inguinal hernias, moderate, without obstruction or gangrene, not recurrent. The patient to see Dr. Ward as outpatient to have elective surgery , once acute infection has resolved. 3. Acute sinusitis with hematuria secondary to Pseudomonas multi-drug resistant. Continue meropenem. We will treat for a total of 14 days. 4. History of bladder cancer. Bone scan does not show any concerning metastatic disease. 5. Chronic obstructive pulmonary disease with acute respiratory infection. We will continue with nebulizer treatments and supplemental O2 p.r.n. improving. 6. Hypotension, improved with IV fluids. 7. Gastrointestinal and deep venous thrombosis prophylaxis with PPI and Lovenox. 8. Elevated LFTs: Unclear etiology. Monitor. Plan: The patient will need to be set up with PICC line for long-term IV antibiotics for treating Pseudomonas. Clinically has improved however still spiking high fevers. We will discharge once the PICC line and IV antibiotics are set up through home health. SARAI Voice ID: [id number] Report ID: [id number] MTDD
[2018-07-02] MEDS: ACETAMINOPHEN 500 MG TAB PO PRN (20:06)
[2018-07-03] MEDS: Meropenem 1,000 MG in NA CHLORIDE 0.9% 100 ML IV SCH ×3 (00:36→17:25)
[2018-07-03 06:33] LABS: Absolute Lymphocytes (CBC) 0.6 K/uL (0.7-4.9); Absolute Monocytes 0.8 K/uL (0.1-1.3); Absolute Neutrophil 3.5 K/uL (1.8-8.0); Basophils % 0.5 % (0-1.3); Eosinophils % 2.8 % (0-4.4); Hematocrit 34.4 % (39.6-49.0); Lymphocytes % 11.1 % (15.3-44.8); MCH 30.8 pg (27.0-35.0); MCV 88.4 fL (80-100); MPV 8.9 fL (7.6-11.3); Monocytes % 15.2 % (3.3-12.3); RBC Red Blood Cell Count 3.89 M/uL (4.33-5.43)
[2018-07-03 06:59] LABS: ALT/SGPT 120 U/L (12-78); AST/SGOT 101 U/L (15-37); Albumin 2.7 g/dL (3.4-5.0); Alkaline Phosphatase 209 U/L (45-117); BUN Blood Urea Nitrogen 10 mg/dL (7-18); Bicarbonate 27 mmol/L (21-32); Bilirubin Total 0.5 mg/dL (0.2-1.0); Glucose Level 103 mg/dL (74-106); Potassium 3.5 mmol/L (3.5-5.1); Protein, Total 6.2 g/dL (6.4-8.2); Sodium Level 138 mmol/L (136-145)
--- NOTE | 2018-07-03 07:18 | RAD REPORT ---
EXAM DESCRIPTION: RAD - Chest Single View - 07/03/2018 3:22 am CLINICAL HISTORY: PICC line placement A preliminary report was provided at the time of the study and reviewed prior to final report. COMPARISON: June 29 FINDINGS: Portable chest was obtained following placement of a right upper extremity PICC line. The catheter tip is in the mid SVC.
[2018-07-03] MEDS: ACETAMINOPHEN 500 MG TAB PO PRN ×2 (07:27→11:26)
[2018-07-03 08:33] VITALS: O2SAT 98
[2018-07-03] MEDS: TRAMADOL HCL 50 MG TAB PO PRN (09:00)
[2018-07-03] MEDS ORDERED: POTASSIUM PHOS IN 0.9 % NACL 15 MMOL/250 ML BAG IV ONE (09:21)
[2018-07-03] MEDS: NA CHLORIDE 0.9% 1,000 ML IV SCH ×2 (11:27→18:48)
--- NOTE | 2018-07-03 15:24 | PN ---
Subjective: Patient is feeling better. Swelling is getting better, is waiting on placement for nurs ing home for IV therapy. Objective: Vital Signs: 98.6, pulse 80, respirations 18, BP 122/58, sats 98% nasal cannula 2 L. I' s and O's; he took in 1519 and put out 900 cc, positive 619 over the last shift. His urine culture finally grew Pseudomonas aeruginosa sensitive to gentamicin, aztreonam, tobramycin, meropenem, and amikacin. The patient will be going home on meropenem. Assessment: Right orchitis, Pseudomonas. Plan for meropenem, 10-14 days of meropenem. He has a PIC C line placed and will be going home as such. He will follow up with his urologist in [place]. JUAN LUIS/ASAD Voice ID: [id number] Report ID: [id number]
[2018-07-03] MEDS ORDERED: NA CHLORIDE 0.9% 1,000 ML IV ONE (16:07)
[2018-07-03 18:51] VITALS: BP 123/59; TEMP 97.7
--- NOTE | 2018-07-03 21:15 | PN ---
Date of Progress Note: 07/03/2018 History: The patient is seen and examined. Chart reviewed and case discussed with RN. The patient still having some fevers. The pain is much better controlled. No nausea or vomiting. Review of Systems: Negative except as above. Medications: List reviewed. Physical Examination: Vital Signs: Temperature 97.2, heart rate 76, blood pressure 94/53, respirations 18, O2 95% on room air. General: Awake, alert, oriented x3. Some mild distress, ill-appearing male, elderly. CV: S1, S2. Regular rate and rhythm. No murmurs. Respiratory: Moving air well bilaterally. No wheezing. No stridor. Gastrointestinal: Abdomen is soft, nontender, nondistended. Positive bowel sounds. Extremities: No clubbing, cyanosis, or edema. Neurologic: Nonfocal. : Testicular erythema, improving. Mild tenderness to palpation. Laboratory Data: Sodium 138, potassium 3.5, chloride 105, CO2 27, BUN 10, creatinine 0.8, glucose 10 3, calcium 8, phosphorus 1.9, AST 101, ALT 120, alkaline phosphatase 209, albumin 2.7. WBC 5, H and H 12 and 34.4, platelets 169, neutrophils 70%. Urine culture growing Pseudomonas. Assessment And Plan: A 63-year-old male with: 1.Right-sided orchitis. Continue meropenem secondary to Pseudomonas with multi-drug resistance. Th e patient's pain has improved significantly. The swelling and erythema have also began to subside. WBC count normalized. However, patient is still spiking high fever, 101.[address] Peñaloza's input. The patient awaiting transfer to SNF for IV antibiotic treatment. We will con tinue symptomatic treatment with ice, elevation. 2.Bilateral inguinal hernias, moderate, without obstruction or gangrene, not recurrent. The patient to have elective surgery as outpatient once acute infection has resolved. 3.Acute cystitis with hematuria secondary to Pseudomonas with multi-drug resistance. Continue merop enem for a total of 14 day treatment. 4.History of bladder cancer. Bone scan negative for metastatic disease. 5.Chronic obstructive pulmonary disease with acute respiratory infection, improving. We will contin ue nebulizer treatments and O2 as needed. 6.Hypotension. We will continue IV fluids. We will bolus patient 500 mL due to hypotension. 7.Elevated liver function tests, unclear etiology, may be related to medications. We will continue to monitor. Doubt hepatitis. 8.Gastrointestinal and deep venous thrombosis prophylaxis with PPI and Lovenox. Plan: Continue IV antibiotics. The patient is still febrile with less than 24 hours between fevers. PICC line has been placed. Chest x-ray did not show any infiltrates. We will discharge to [facility] onc e accepted. SARAI Voice ID: [id number] Report ID: [id number]
--- NOTE | 2018-07-06 06:48 | DS ---
Date of Discharge: 07/03/2018 Consultants: Dr. Peñaloza with Urology, Dr. Ward with General Surgery. Procedures: None. Admitting Diagnoses: 1.Testicular swelling. 2.Inguinal hernia without obstruction or gangrene, bilateral, nonrecurrent. 3.Bladder cancer. 4.Chronic obstructive pulmonary disease. 5.Chronic bronchitis. Discharge Diagnoses: 1.Right-sided orchitis secondary to Pseudomonas. 2.Acute cystitis with hematuria secondary to Pseudomonas. 3.Bilateral inguinal hernias, moderate, without obstruction or gangrene, not recurrent. 4.History of bladder cancer. Bone scan negative for metastatic disease. 5.Chronic obstructive pulmonary disease, chronic bronchitis with acute respiratory infection. 6.Hypotension, improved with IV fluids. 7.Elevated liver function tests. Hospital Course: The patient is a 63-year-old male who came into the hospital for testicular swellin g and pain. The patient was found to have orchitis. He was started on IV antibiotics. CT scan of t he abdomen was negative for testicular or scrotal abnormality. Ultrasound was done of the scrotum, w hich did not show any varicocele or hydrocele, did show herniated bowel on the left side extending in to the proximal most inguinal canal. The patient was seen by Dr. Peñaloza, Urology and Dr. Ward with G eneral Surgery. No recommendations for surgery at this point. 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 Bone scan was done to rule out metastatic disease. There was no abnormal b one scan activity in the area of the enlarging sclerotic foci, superior right iliac crest. Punctate focus of increased activity as a solitary abnormality near the inferior margin of the left SI joint. CT imaging shows a peripherally sclerotic region in the general location that has shown no change ba ck to 2013. Absence of iliac crest activity would favor a benign etiology. The patient's urine cult ure was positive for Pseudomonas with multi-drug resistance. He was switched over to meropenem. The patient had clinical improvement. He did have significant high fevers and high white count, was sep tic with hypotension requiring IV fluid hydration. The patient did have some electrolyte abnormaliti es, which were corrected. The patient was then set up with IV antibiotics at a [facility] and was discharged in a fair condition. Activity: As tolerated. Medications: As per medication reconciliation list. Finish a course of meropenem for 2 weeks. Retu rn to ER for worsening condition. Followup: Follow up with primary care physician in 2 to 3 days. Follow up with urologist, Dr. Peñaloza in 2 weeks. Follow up with Dr. Ward, general surgeon in 2 weeks. Diet: Heart-healthy, diabetic diet. Total time spent discharging the patient was 38 minutes. Physical Examination: For physical exam findings, please see the progress note dictated on the day of discharge. SARAI Voice ID: [id number] Report ID: [id number]
== END 2018-07-03 20:00 | DRG 728 ==
LOC: ER 11:08 → ERHOLD 13:21 → 2ND 15:53
PROVIDERS: ADMIT Family Medicine; ATTEND Family Medicine
PROC: 02HV33Z Insertion of Infusion Device into Superior Vena Cava, Percutaneous Approach (ICD-10-PCS; principal; 2018-07-02)
PROC: B548ZZA Ultrasonography of Superior Vena Cava, Guidance (ICD-10-PCS; 2018-07-02)
DX: N45.2 Orchitis (principal); N30.01 Acute cystitis with hematuria; J44.0 Chronic obstructive pulmonary disease with (acute) lower respiratory infection; K40.20 Bilateral inguinal hernia, without obstruction or gangrene, not specified as recurrent; B96.5 Pseudomonas (aeruginosa) (mallei) (pseudomallei) as the cause of diseases classified elsewhere; Z85.51 Personal history of malignant neoplasm of bladder; I95.9 Hypotension, unspecified; R94.5 Abnormal results of liver function studies; J22 Unspecified acute lower respiratory infection; Z16.24 Resistance to multiple antibiotics; E87.8 Other disorders of electrolyte and fluid balance, not elsewhere classified
CPT/HCPCS: 36415; 71045; 74176; 76377; 76870; 78306; 80048; 80053; 80076; 81003; 81015; 83690; 83735; 83880; 84100; 84484; 85025; 85610; 87077; 87086; 87088; 87186; 93005; 96365; 96367; 96375; 99285; A9503; J0696; J2175; J2405; J7030